=== PATIENT | female | born 1970 | race Caucasian/White ===

== ENCOUNTER → 2017-03-01 | Outpatient (CLI) | payer OTHER ==
--- NOTE | 2017-03-01 07:45 | DIAGNOSTIC IMAGING REPORT ---
RIGHT HIP UNILATERAL 2 VIEWS CLINICAL HISTORY: HIP PAIN Right pain COMPARISON: None. DISCUSSION: The bones and joint spaces appear intact. There is no evidence of fracture, dislocation or bony disease. There is no evidence for soft tissue swelling. IMPRESSION: Negative study. Electronically signed by: Yury Flores M.D. 03/01/2017 7:43 AM Dictated Date/Time: 03/01/2017 7:43 AM
--- NOTE | 2017-03-01 07:48 | DIAGNOSTIC IMAGING REPORT ---
LUMBAR SPINE 5 VIEWS HISTORY: LSP INE COMPARISON: None. FINDINGS: There is no fracture. No subluxation. Disc spaces are preserved. IMPRESSION: No fracture or subluxation within the lumbar spine. Electronically signed by: Yury Flores M.D. 03/01/2017 7:46 AM Dictated Date/Time: 03/01/2017 7:46 AM
== END | disposition home or self-care (01) ==
LOC: C.RAD 07:13
PROVIDERS: ATTEND Family Medicine
DX: M54.5 Low back pain (principal)

== ENCOUNTER → 2017-08-28 | Outpatient (CLI) | payer OTHER ==
[2017-08-28 12:33] LABS: BASO % 0.6 %; BASO ABS # 0.03 K/uL (0-0.2); COMPLETE YES; EOS % 2.9 %; HEMATOCRIT 41.4 % (37-47); IG% 0.4 %; LYMPH % 26.1 %; LYMPH ABS # 1.37 K/uL (1.2-3.4); MEAN CELL VOLUME 88.1 fL (80-100); MEAN CORPUSCULAR HEMOGLOBIN 30.9 pg (25-34); MONO % 7.6 %; NEUT % 62.4 %; PLATELET COUNT 155 K/uL (130-400); WHITE BLOOD COUNT 5.25 K/uL (4.8-10.8)
[2017-08-28 12:56] LABS: BLOOD UREA NITROGEN 14 mg/dl (7-18); CALCIUM 8.7 mg/dl (8.5-10.1); CARBON DIOXIDE 28 mmol/L (21-32); CHLORIDE 106 mmol/L (98-107); CREATININE 0.87 mg/dl (0.60-1.20); GLUCOSE 86 mg/dl (70-99); MAGNESIUM 2.1 mg/dl (1.8-2.4); POTASSIUM 3.7 mmol/L (3.5-5.1); SODIUM 139 mmol/L (136-145)
[2017-08-28 13:05] LABS: ALB/GLOB RATIO 1.4 (0.9-2); ALKALINE PHOSPHATASE 45 U/L (45-117); ALT/SGPT 19 U/L (12-78); AST/SGOT 18 U/L (15-37); CHOLESTEROL 152 mg/dl (0-200); HDL CHOLESTEROL 50 mg/dl; LDL CHOLESTEROL CALCULATED 83 mg/dl; THYROID STIMULATING HORMONE 0.093 uIu/ml (0.300-4.500); TRIGLYCERIDES 93 mg/dl (0-150); VERY LOW DENSITY LIPOPROT CALC 19 mg/dl
== END | disposition home or self-care (01) ==
LOC: C.LABPBG 09:24
PROVIDERS: ATTEND Family Medicine
DX: E03.9 Hypothyroidism, unspecified (principal); R53.83 Other fatigue; E28.2 Polycystic ovarian syndrome; D68.0 Von Willebrand disease

== ENCOUNTER → 2017-11-21 | Outpatient (CLI) | payer OTHER ==
--- NOTE | 2017-11-21 13:49 | DIAGNOSTIC IMAGING REPORT ---
THYROID ULTRASOUND HISTORY: HYPOTHYROIDISM COMPARISON: None. FINDINGS: Right lobe: 4.4 x 1.9 x 1.6 cm. The gland is heterogeneous. No nodules. Increased color flow. Left lobe: 4.4 x 1.4 x 1.4 cm. The gland is heterogeneous. No nodules. Increased color flow. Isthmus: 4 mm in thickness. No nodules. IMPRESSION: Diffusely heterogeneous thyroid gland with increased color flow. This could represent a nonspecific thyroiditis. No nodules identified. Electronically signed by: Shiv Ochoa M.D. 11/21/2017 1:47 PM Dictated Date/Time: 11/21/2017 1:47 PM
== END | disposition home or self-care (01) ==
LOC: C.ULTR 13:06
PROVIDERS: ATTEND Family Medicine
DX: E03.9 Hypothyroidism, unspecified (principal)

== ENCOUNTER → 2017-12-02 | Outpatient (CLI) | payer OTHER | END | disposition home or self-care (01) | LOC: C.LABSPEC 12:40 | PROVIDERS: ATTEND Family Medicine | DX: E03.9 Hypothyroidism, unspecified (principal) ==